=== PATIENT | female | born 1975 | race Hispanic/Latino ===

== ENCOUNTER 2016-10-12 08:30 | Inpatient (IN) | payer MEDICARE ==
[2016-10-12 09:23] LABS: Bilirubin,Urine NEG (Negative); Blood,Urine NEG (Negative); Ketones,Urine NEG (Negative); Leukocyte Esterase,Urine NEG (Negative); Mucus,Urine FEW /HPF; Nitrite,Urine NEG (Negative); Protein,Urine <15 mg/dL mg/dL (Negative); Urobilinogen,Urine < 2.0 mg/dL (<2.0)
[2016-10-12 10:02] LABS: Eosinophils % (Auto) 3.9 % (0.0-4.3); Hematocrit 33.9 % (30.3-42.9); Hemoglobin 10.9 gm/dl (10.1-14.3); Mean Corpuscular HGB Conc 32 % (30-34); Mean Corpuscular Volume 78 fl (79-97); Platelet Count 315 K/mm3 (140-440); Red Blood Count 4.32 M/mm3 (3.65-5.03); White Blood Count 4.6 K/mm3 (4.5-11.0)
[2016-10-12 10:05] LABS: Mean Corpuscular Hemoglobin 25 pg (28-32)
[2016-10-12 10:09] LABS: Anion Gap 20 mmol/L; BUN/Creatinine Ratio 8.88; Blood Urea Nitrogen 8 mg/dL (7-17); Calcium 8.4 mg/dL (8.4-10.2); Carbon Dioxide 24 mmol/L (22-30); Chloride 98.7 mmol/L (98-107); Glucose 130 mg/dL (65-100); Potassium 4.7 mmol/L (3.6-5.0); Sodium 138 mmol/L (137-145)
[2016-10-12] MEDS ORDERED: MORPHINE IV ONE ×2 (10:41→15:15)
[2016-10-12] MEDS ORDERED: NACL 0.9% 1000 ML 1,000 ML IV ONE (10:41)
[2016-10-12] MEDS ORDERED: ZOFRAN IV ONE (10:41)
[2016-10-12] MEDS ORDERED: TORADOL IV ONE (10:41)
--- NOTE | 2016-10-12 11:18 | XRay Report ---
CHEST TWO VIEWS: 10/12/16 08:30:00 CLINICAL: Chest pain. COMPARISON: None FINDINGS: Normal heart and pulmonary vasculature. The lungs are normally expanded and clear.Spondylosis of the thoracic spine. IMPRESSION: No acute cardiopulmonary process.
--- NOTE | 2016-10-12 13:39 | Nuclear Medicine Report ---
VENTILATION/PERFUSION LUNG SCAN: 10/12/16 13:08 CLINICAL: Chest pain. Mild d-dimer elevation. Tachycardia. TECHNIQUE: 15.0 millicuries of xenon-133 was administered by aerosol and 5.0mCi of technetium 99m MAA was administered intravenously. Comparison is made to a same day chest x-ray. FINDINGS: Inhalation of Xenon gas demonstrates a normal distribution of the activity throughout both lungs. The wash out phases show no focal retention of activity. After injection of Technetium 99m macroaggregated albumin, gamma camera imaging of the lungs in multiple projections demonstrates normal pulmonary contours with a homogeneous distribution of activity. No focal areas of perfusion deficiency are identified. IMPRESSION: Low probability of pulmonary embolus.
--- NOTE | 2016-10-12 14:09 | Emergency Department Report ---
ED Chest Pain HPI - General Chief Complaint: Chest Pain Stated Complaint: CHEST PAIN Time Seen by Provider: 10/12/16 10:35 Source: EMS Mode of arrival: Stretcher Limitations: No Limitations - History of Present Illness Initial Comments: 41 year old female with a past medical history of asthma, obesity, diabetes, seizures, previous appendectomy and cholecystectomy presents from [place] with complaints of left-sided chest pain since 1 AM. Patient was given medication, went to sleep, and woke up at 7 AM with continued left-sided chest pain. Patient's pain is constant, rated 9/10 in intensity worse with inspiration, palpation, and movement. Positive shortness of breath due to pain with inspiration. Denies nausea, vomiting, diaphoresis, cough, or calf tenderness. Patient denies previous history of stress test or cardiac cath.. Severity scale (0 -10): 5 - Related Data Home Medications Medication Instructions Recorded Confirmed Last Taken Albuterol Sulfate [Ventolin HFA] 8 mg IH Q6HR PRN 10/12/16 10/12/16 Unknown Gabapentin [Neurontin] 300 mg PO BID 10/12/16 10/12/16 10/12/16 Insulin Aspart [NovoLOG Flexpen] 100 unit INTRADERMA ACHS 10/12/16 10/12/1606/20 LORazepam [Ativan INJ] 1 mg IM Q4HR PRN 10/12/16 10/12/16 Unknown Lubiprostone [Amitiza] 8 mg PO BID 10/12/16 10/12/16 Unknown Metformin HCl [Glucophage] 500 mg PO BID 10/12/16 10/12/16 10/12/16 Sertraline [Zoloft] 50 mg PO DAILY 10/12/16 10/12/16 Unknown chlorproMAZINE [Thorazine INJ] 50 mg IM Q4HR PRN 10/12/16 10/12/16 Unknown guaiFENesin [Robitussin] 100 mg PO Q8HR 10/12/16 10/12/16 Unknown levETIRAcetam [Keppra TAB] 1,000 mg PO BID 10/12/16 10/12/16 Unknown levETIRAcetam [Keppra TAB] 500 mg PO DAILY 10/12/16 10/12/16 10/11/16 risperiDONE [RisperDAL] 2 mg PO DAILY 10/12/16 10/12/16 10/12/16 Allergies Allergy/AdvReac Type Severity Reaction Status Date / Time divalproex sodium Allergy Rash Verified 10/12/16 09:09 [From Depakote] carbamazepine [From Tegretol] AdvReac Rash Verified 10/12/16 09:09 JAVAD score - Javad Score Age > 65: (0) No (Constitutional: No fevers chills or weight loss) Aspirin use within the Past 7 Days: (0) No 3 or more CAD Risk Factors: (0) No 2 or more Angina events in past 24 hrs: (0) No Known CAD with more than 50% Stenosis: (0) No Elevated Cardiac Markers: (0) No ST Deviation Greater than 0.5mm: (0) No JAVAD Score: 0 ED Review of Systems ROS: Stated complaint: CHEST PAIN Other details as noted in HPI Comment: All other systems reviewed and negative Other: Constitutional: No fevers chills Eyes: No eye pain visual changes or discharge ENT: No ear pain or throat pain Neck: Denies pain Respiratory: Denies cough wheezing Cardiovascular: Denies palpitations, syncope GI: Denies abdominal pain, nausea, vomiting, diarrhea : Denies dysuria, urinary frequency, or urgency Musculoskeletal: Denies back pain, joint swelling Skin: Denies rash, lesions, erythema Neurologic: Denies headache, numbness, weakness Psychiatric: Denies suicidal ideation, hallucinations ED Past Medical Hx - Past Medical History Previous Medical History?: Yes Hx Diabetes: Yes Hx Seizures: Yes Hx Psychiatric Treatment: Yes Hx Asthma: Yes - Surgical History Past Surgical History?: Yes Hx Cholecystectomy: Yes Hx Appendectomy: Yes Additional Surgical History: Appendectomy - Social History Smoking Status: Never Smoker Substance Use Type: None - Medications Home Medications: Home Medications Medication Instructions Recorded Confirmed Last Taken Type Albuterol Sulfate [Ventolin HFA] 8 mg IH Q6HR PRN 10/12/16 10/12/16 Unknown History Gabapentin [Neurontin] 300 mg PO BID 10/12/16 10/12/16 10/12/16 History Insulin Aspart [NovoLOG Flexpen] 100 unit INTRADERMA ACHS 10/12/16 10/12/1606/20 History LORazepam [Ativan INJ] 1 mg IM Q4HR PRN 10/12/16 10/12/16 Unknown History Lubiprostone [Amitiza] 8 mg PO BID 10/12/16 10/12/16 Unknown History Metformin HCl [Glucophage] 500 mg PO BID 10/12/16 10/12/16 10/12/16 History Sertraline [Zoloft] 50 mg PO DAILY 10/12/16 10/12/16 Unknown History chlorproMAZINE [Thorazine INJ] 50 mg IM Q4HR PRN 10/12/16 10/12/16 Unknown History guaiFENesin [Robitussin] 100 mg PO Q8HR 10/12/16 10/12/16 Unknown History levETIRAcetam [Keppra TAB] 1,000 mg PO BID 10/12/16 10/12/16 Unknown History levETIRAcetam [Keppra TAB] 500 mg PO DAILY 10/12/16 10/12/16 10/11/16 History risperiDONE [RisperDAL] 2 mg PO DAILY 10/12/16 10/12/16 10/12/16 History ED Physical Exam - General Limitations: No Limitations - Other Other exam information: General: No limitations, patient is alert in no acute distress Head exam: Atraumatic, normocephalic Eyes exam: Normal appearance, pupils equal reactive to light, extraocular movements intact ENT: Moist mucous membrane, normal oropharynx Neck exam: Normal inspection, full range of motion Respiratory exam: Clear to auscultation bilateral, no wheezes, rales, crackles Cardiovascular: Tachycardic regular rhythm, reproducible left-sided chest wall tenderness Abdomen: Soft, nondistended, and nontender, with normal bowel sounds, no rebound, or guarding Extremity: Full range of motion normal inspection no deformity, no calf tenderness or edema Back: Normal Inspection, full range of motion, no tenderness Neurologic: Alert, oriented x3, cranial nerves intact, no motor or sensory deficit Psychiatric: normal affect, normal mood Skin: Warm, dry, intact ED Course Vital Signs 10/12/16 10/12/16 10/12/16 08:54 09:00 09:06 Temperature Pulse Rate 113 H Respiratory 12 16 Rate Blood Pressure 140/78 Blood Pressure [Left] O2 Sat by Pulse 81 L 99 100 Oximetry 10/12/16 10/12/16 10/12/16 09:10 09:16 09:30 Temperature Pulse Rate 121 H 114 H Respiratory 14 15 12 Rate Blood Pressure 109/58 116/65 Blood Pressure [Left] O2 Sat by Pulse 100 98 97 Oximetry 10/12/16 10/12/16 10/12/16 09:45 09:59 10:00 Temperature 98.0 F Pulse Rate Respiratory 16 Rate Blood Pressure 116/66 114/67 Blood Pressure [Left] O2 Sat by Pulse 97 100 98 Oximetry 10/12/16 10/12/16 10/12/16 10:20 10:38 10:45 Temperature Pulse Rate 128 H 122 H 125 H Respiratory 15 17 13 Rate Blood Pressure 114/67 119/69 116/75 Blood Pressure [Left] O2 Sat by Pulse 97 98 99 Oximetry 10/12/16 10/12/16 10/12/16 11:00 11:16 11:30 Temperature Pulse Rate 121 H 120 H Respiratory 12 12 12 Rate Blood Pressure 116/75 116/75 116/75 Blood Pressure [Left] O2 Sat by Pulse 99 98 95 Oximetry 10/12/16 10/12/16 10/12/16 11:46 12:00 12:16 Temperature Pulse Rate 114 H 116 H 112 H Respiratory 12 11 L 11 L Rate Blood Pressure 116/75 116/75 116/75 Blood Pressure [Left] O2 Sat by Pulse 98 97 97 Oximetry 10/12/16 10/12/16 10/12/16 12:30 12:46 13:00 Temperature Pulse Rate 108 H 122 H 104 H Respiratory 12 20 11 L Rate Blood Pressure 116/75 116/75 116/75 Blood Pressure [Left] O2 Sat by Pulse 99 98 97 Oximetry 10/12/16 10/12/16 10/12/16 13:47 13:57 14:00 Temperature 97.6 F Pulse Rate 102 H 111 H Respiratory 18 13 Rate Blood Pressure 104/62 112/77 Blood Pressure 104/58 [Left] O2 Sat by Pulse 89 100 96 Oximetry - Reevaluation(s) Reevaluation #1: 10/12/16 14:12 Patient heart rate is gradually improving with IV fluid and pain medication. Despite morphine and Toradol patient continues to complain of 10/10 left-sided chest pain. I referred to test pending at this time to rule out alternative source of tachycardia however, patient does have a psychiatric disorder and does receive Ativan as needed at [facility] for tachycardia can be related to anxiety. Initial O2 sat documented at 81% which is erroneous and does not follow the trend of her subsequent pulse oximetry measurements. Nurse states that this was incorrect measurement and has made a note in the chart 10/12/16 14:12 10/12/16 14:16 ED Medical Decision Making - Lab Data Result diagrams: 10/12/16 09:37 10/12/16 09:37 Lab Results 10/12/16 10/12/16 10/12/16 Range/Units 09:37 09:37 10:14 WBC 4.6 (4.5-11.0) K/mm3 RBC 4.32 (3.65-5.03) M/mm3 Hgb 10.9 (10.1-14.3) gm/dl Hct 33.9 (30.3-42.9) % MCV 78 L (79-97) fl MCH 25 L (28-32) pg MCHC 32 (30-34) % RDW 17.0 H (13.2-15.2) % Plt Count 315 (140-440) K/mm3 Lymph % (Auto) 32.0 (13.4-35.0) % [place] % (Auto) 10.9 H (0.0-7.3) % Eos % (Auto) 3.9 (0.0-4.3) % Baso % (Auto) 1.0 (0.0-1.8) % Lymph # 1.5 (1.2-5.4) K/mm3 [place] # 0.5 (0.0-0.8) K/mm3 Eos # 0.2 (0.0-0.4) K/mm3 Baso # 0.0 (0.0-0.1) K/mm3 Seg Neutrophils % 52.2 (40.0-70.0) % Seg Neutrophils # 2.4 (1.8-7.7) K/mm3 D-Dimer 331.18 H (0-234) ng/mlDDU Sodium 138 (137-145) mmol/L Potassium 4.7 (3.6-5.0) mmol/L Chloride 98.7 (98-107) mmol/L Carbon Dioxide 24 (22-30) mmol/L Anion Gap 20 mmol/L BUN 8 (7-17) mg/dL Creatinine 0.9 (0.7-1.2) mg/dL Estimated GFR > 60 ml/min BUN/Creatinine Ratio 8.88 % Glucose 130 H (65-100) mg/dL Calcium 8.4 (8.4-10.2) mg/dL Troponin T < 0.010 (0.00-0.029) ng/mL TSH (0.270-4.200) mlU/mL Urine Color (Yellow) Urine Turbidity (Clear) Urine pH (5.0-7.0) Ur Specific [place] (1.003-1.030) Urine Protein (Negative) mg/dL Urine Glucose (UA) (Negative) mg/dL Urine Ketones (Negative) mg/dL Urine Blood (Negative) Urine Nitrite (Negative) Urine Bilirubin (Negative) Urine Urobilinogen (<2.0) mg/dL Ur Leukocyte Esterase (Negative) Urine WBC (Auto) (0.0-6.0) /HPF Urine RBC (Auto) (0.0-6.0) /HPF U Epithel Cells (Auto) (0-13.0) /HPF Urine Mucus /HPF Urine HCG, Qual (Negative) 10/12/16 10/12/16 10/12/16 Range/Units 12:08 13:03 Unknown WBC (4.5-11.0) K/mm3 RBC (3.65-5.03) M/mm3 Hgb (10.1-14.3) gm/dl Hct (30.3-42.9) % MCV (79-97) fl MCH (28-32) pg MCHC (30-34) % RDW (13.2-15.2) % Plt Count (140-440) K/mm3 Lymph % (Auto) (13.4-35.0) % [place] % (Auto) (0.0-7.3) % Eos % (Auto) (0.0-4.3) % Baso % (Auto) (0.0-1.8) % Lymph # (1.2-5.4) K/mm3 [place] # (0.0-0.8) K/mm3 Eos # (0.0-0.4) K/mm3 Baso # (0.0-0.1) K/mm3 Seg Neutrophils % (40.0-70.0) % Seg Neutrophils # (1.8-7.7) K/mm3 D-Dimer (0-234) ng/mlDDU Sodium (137-145) mmol/L Potassium (3.6-5.0) mmol/L Chloride (98-107) mmol/L Carbon Dioxide (22-30) mmol/L Anion Gap mmol/L BUN (7-17) mg/dL Creatinine (0.7-1.2) mg/dL Estimated GFR ml/min BUN/Creatinine Ratio % Glucose (65-100) mg/dL Calcium (8.4-10.2) mg/dL Troponin T < 0.010 (0.00-0.029) ng/mL TSH 6.670 H (0.270-4.200) mlU/mL Urine Color Yellow (Yellow) Urine Turbidity Clear (Clear) Urine pH 6.0 (5.0-7.0) Ur Specific [place] 1.011 (1.003-1.030) Urine Protein <15 mg/dl (Negative) mg/dL Urine Glucose (UA) Neg (Negative) mg/dL Urine Ketones Neg (Negative) mg/dL Urine Blood Neg (Negative) Urine Nitrite Neg (Negative) Urine Bilirubin Neg (Negative) Urine Urobilinogen < 2.0 (<2.0) mg/dL Ur Leukocyte Esterase Neg (Negative) Urine WBC (Auto) 1.0 (0.0-6.0) /HPF Urine RBC (Auto) 2.0 (0.0-6.0) /HPF U Epithel Cells (Auto) 3.0 (0-13.0) /HPF Urine Mucus Few /HPF Urine HCG, Qual Negative (Negative) - EKG Data -: EKG Interpreted by Me (sinus tach [address] t abnl) - EKG Data When compared to previous EKG there are: previous EKG unavailable - Radiology Data Radiology results: report reviewed cxr: No acute findings VQ scan: Low probability of PE - Medical Decision Making I believe the patient's chest pain is reproducible likely chest wall related. However, patient does have some radiation to arm and left face. Given cardiac risk factors i.e. diabetes and obesity patient will be admitted to the hospital for stress testing since no reported history of stress testing in the past. No previous cardiac workup or hospital visit in [facility]. - Differential Diagnosis PE, atypical chest pain, pleurisy, [place], costochondritis, unstable ang Critical Care Time: No Critical care attestation.: If time is entered above; I have spent that time in minutes in the direct care of this critically ill patient, excluding procedure time. ED Disposition Clinical Impression: Diabetes Chest pain Qualifiers: Chest pain type: unspecified Qualified Code(s): R07.9 - Chest pain, unspecified Disposition: OP ADMITTED IP TO THIS HOSP Is pt being admited?: Yes Does the pt Need Aspirin: Yes Condition: Stable Time of Disposition: 14:06 (Dr Giovanni Adair/hosp)
[2016-10-12] MEDS ORDERED: ASPIRIN PO ONE (14:17)
[2016-10-12] MEDS ORDERED: MILK OF MAGNESIA PO PRN (15:34)
[2016-10-12] MEDS ORDERED: TYLENOL PO PRN (15:34)
[2016-10-12] MEDS ORDERED: ZOFRAN IV PRN (15:34)
[2016-10-12] MEDS ORDERED: D50W (25GM) IV PRN (15:34)
[2016-10-12] MEDS ORDERED: DULCOLAX PR PRN (15:34)
--- NOTE | 2016-10-12 15:49 | History and Physical Report ---
History of Present Illness Date of examination: 10/12/16 Chief complaint: Recurrent chest pain for 3 weeks History of present illness: 41-year-old white female with history of bipolar disorder was transferred from [facility] as the patient was complaining of chest pain. Patient is mildly psychotic. History is not very reliable. She says she has been having chest pain for 2,3 or 4 weeks. She says the pain pain has been constant all this time. However she woke up around 1 AM today with the severe chest pain in the midsternal area and she says it was quite severe and the pain was extending to the left side of her face. Again patient says that the pain has been constant. She also feels somewhat short of breath but denies any sweating palpitations or dizziness or loss of consciousness. She says she needs morphine for her pain Past History Past Medical History: diabetes, seizures, other (bipolar disorder) Past Surgical History: cholecystectomy, hernia repair Social history: no significant social history Family history: CAD, diabetes Medications and Allergies Allergies Allergy/AdvReac Type Severity Reaction Status Date / Time divalproex sodium Allergy Rash Verified 10/12/16 09:09 [From Depakote] carbamazepine [From Tegretol] AdvReac Rash Verified 10/12/16 09:09 Home Medications Medication Instructions Recorded Confirmed Last Taken Type Albuterol Sulfate [Ventolin HFA] 8 mg IH Q6HR PRN 10/12/16 10/12/16 Unknown History Gabapentin [Neurontin] 300 mg PO BID 10/12/16 10/12/16 10/12/16 History Insulin Aspart [NovoLOG Flexpen] 100 unit INTRADERMA ACHS 10/12/16 10/12/1606/20 History LORazepam [Ativan INJ] 1 mg IM Q4HR PRN 10/12/16 10/12/16 Unknown History Lubiprostone [Amitiza] 8 mg PO BID 10/12/16 10/12/16 Unknown History Metformin HCl [Glucophage] 500 mg PO BID 10/12/16 10/12/16 10/12/16 History Sertraline [Zoloft] 50 mg PO DAILY 10/12/16 10/12/16 Unknown History chlorproMAZINE [Thorazine INJ] 50 mg IM Q4HR PRN 10/12/16 10/12/16 Unknown History guaiFENesin [Robitussin] 100 mg PO Q8HR 10/12/16 10/12/16 Unknown History levETIRAcetam [Keppra TAB] 1,000 mg PO BID 10/12/16 10/12/16 Unknown History levETIRAcetam [Keppra TAB] 500 mg PO DAILY 10/12/16 10/12/16 10/11/16 History risperiDONE [RisperDAL] 2 mg PO DAILY 10/12/16 10/12/16 10/12/16 History Active Meds: Active Medications Acetaminophen (Tylenol) 650 mg PO Q4H PRN PRN Reason: Pain MILD(1-3)/Fever >100.5/JOY Acetaminophen/Hydrocodone Bitart ([place] 5/325) 1 each PO Q6H PRN PRN Reason: Pain, Moderate (4-6) Bisacodyl (Dulcolax) 10 mg [place] QDAY PRN PRN Reason: Constipation unrelieved by [facility] Dextrose (D50w (25gm)) 50 ml IV PRN PRN PRN Reason: Hypoglycemia Famotidine (Pepcid) 20 mg PO BID [facility] Gabapentin (Neurontin) 300 mg PO BID [facility] Heparin Sodium (Porcine) (Heparin) 5,000 unit SUB-Q Q8HR [facility] Insulin Aspart (Novolog) 0 units SUB-Q ACHS [facility] PRN Reason: Protocol Levetiracetam (Keppra) 500 mg PO DAILY [facility] Magnesium Hydroxide (Milk Of Magnesia) 30 ml PO Q4H PRN PRN Reason: Constipation Metformin HCl (Glucophage) 500 mg PO BID [facility] Miscellaneous Medication (Risperidone [Risperdal]) 2 mg PO DAILY [facility] Ondansetron HCl (Zofran) 4 mg IV Q8H PRN PRN Reason: N/V unrelieved by Reglan Sertraline HCl (Zoloft) 50 mg PO DAILY [facility] Review of Systems Constitutional: no weight loss, no weight gain, no fever, no chills, no fatigue , no weakness Ears, nose, mouth and throat: no ear pain, no ear discharge Cardiovascular: chest pain, shortness of breath, no palpitations, no syncope, no lightheadedness, no dyspnea on exertion, no high blood pressure Respiratory: no cough, no dyspnea on exertion, no wheezing (she denies any history of asthma) Gastrointestinal: no abdominal pain, no nausea, no vomiting, no diarrhea, no constipation, no melena Genitourinary Female: no dysuria, no urinary frequency, no urge incontinence Rectal: no pain Musculoskeletal: no neck pain, no low back pain Integumentary: no rash Neurological: seizures, no head injury, no syncope Psychiatric: depression (bipolar disorder), no anxiety Endocrine: no excessive thirst, no polyuria, no nocturia Exam - Constitutional Vitals: Temp Pulse Resp BP Pulse Ox 97.6 F 111 H 13 112/77 96 10/12/16 13:57 10/12/16 14:00 10/12/16 14:00 10/12/16 14:00 10/12/16 14:00 General appearance: Present: no acute distress, well-nourished - EENT Eyes: Present: PERRL, EOM intact ENT: hearing intact, clear oral mucosa, no thrush - Neck Neck: Present: supple, normal ROM. Absent: masses or JVD - Respiratory Respiratory effort: normal Respiratory: bilateral: CTA - Cardiovascular Rhythm: regular Heart Sounds: Present: S1 & S2 - Extremities Extremities: No edema - Abdominal General gastrointestinal: Present: soft, non-tender. Absent: hepatomegaly, splenomegaly - Integumentary Integumentary: Present: clear, warm - Musculoskeletal Musculoskeletal: strength equal bilaterally, other (she has mild to moderate chest wall tenderness over the sternal area) - Neurologic Neurologic: CNII-XII intact, no focal deficits, moves all extremities Results - Labs CBC & Chem 7: 10/12/16 09:37 10/12/16 09:37 Labs: Abnormal lab results 10/12/16 10/12/16 10/12/16 Range/Units 09:37 09:37 10:14 MCV 78 L (79-97) fl MCH 25 L (28-32) pg RDW 17.0 H (13.2-15.2) % [place] % (Auto) 10.9 H (0.0-7.3) % D-Dimer 331.18 H (0-234) ng/mlDDU Glucose 130 H (65-100) mg/dL TSH (0.270-4.200) mlU/mL 10/12/16 Range/Units 13:03 MCV (79-97) fl MCH (28-32) pg RDW (13.2-15.2) % [place] % (Auto) (0.0-7.3) % D-Dimer (0-234) ng/mlDDU Glucose (65-100) mg/dL TSH 6.670 H (0.270-4.200) mlU/mL Assessment and Plan - Patient Problems (1) Chest pain Current Visit: Yes Status: Acute Qualifiers: Chest pain type: unspecified Qualified Code(s): R07.9 - Chest pain, unspecified Plan to address problem: Atypical chest pain EKG shows a heart rate of 116 bpm, sinus tachycardia, low voltage QRS complex with nonspecific ST and T wave changes 2 sets of troponin were in the normal range VQ scan was low probability for PE Will subject the patient to stress thallium and if it's normal she may be transferred back to [facility] (2) Type 2 diabetes mellitus Current Visit: Yes Status: Chronic Qualifiers: Diabetes mellitus complication status: D Diabetes mellitus complication detail: D Diabetic retinopathy severity: D Proliferative retinopathy type: P Diabetes mellitus macular edema: D Diabetes mellitus termite renewal inspector insulin use : without termite renewal inspector use Laterality: L Chronic kidney disease stage: C Plan to address problem: Monitor blood sugars with sliding scale coverage Continue metformin (3) Seizure disorder Current Visit: Yes Status: Acute (4) Hypothyroidism Current Visit: Yes Status: Chronic Qualifiers: Hypothyroidism type: H Plan to address problem: This is a new finding as the patient is not on any medication We will start the patient on low-dose Synthroid (5) Bipolar disorder Current Visit: Yes Status: Chronic Qualifiers: Active/Remission status: A Current bipolar episode type: C Current episode severity: C Psychotic features: P Most recent bipolar episode type: M Plan to address problem: Continue her home medications
[2016-10-12] MEDS ORDERED: ASPIRIN ONE (17:30)
[2016-10-12] MEDS ORDERED: MORPHINE ONE (17:30)
[2016-10-12] MEDS: NOVOLOG SUB-Q SCH ×2 (18:10→22:52)
[2016-10-12] MEDS: PEPCID PO SCH (22:44)
[2016-10-12] MEDS: NEURONTIN PO SCH (22:44)
[2016-10-12] MEDS: HEPARIN SUB-Q SCH (22:44)
[2016-10-12] MEDS: GLUCOPHAGE PO SCH (22:44)
[2016-10-12] MEDS: NORCO 5/325 PO PRN (22:44)
[2016-10-13] MEDS ORDERED: SYNTHROID PO SCH (06:00)
[2016-10-13] MEDS: NORCO 5/325 PO PRN ×2 (06:23→13:46)
[2016-10-13] MEDS: SYNTHROID PO SCH (06:24)
[2016-10-13] MEDS: HEPARIN SUB-Q SCH ×3 (06:24→22:45)
[2016-10-13] MEDS: RisperDAL PO SCH (09:04)
[2016-10-13] MEDS: PEPCID PO SCH ×2 (09:04→22:45)
[2016-10-13] MEDS: GLUCOPHAGE PO SCH ×2 (09:04→22:45)
[2016-10-13] MEDS: KEPPRA PO SCH (09:04)
[2016-10-13] MEDS: NEURONTIN PO SCH ×2 (09:04→22:45)
[2016-10-13] MEDS: ZOLOFT PO SCH (09:04)
[2016-10-13] MEDS: NOVOLOG SUB-Q SCH ×4 (09:06→22:34)
[2016-10-13] MEDS ORDERED: NON-FORMULARY (Risperidone [Risperdal] 2 MG) PO SCH (10:00)
--- NOTE | 2016-10-13 11:45 | Progress Note ---
Assessment and Plan Assessment and plan: 41-year-old white female with history of bipolar disorder was transferred from [facility] as the patient was complaining of chest pain. Patient is mildly psychotic. History is not very reliable. She says she has been having chest pain for 2,3 or 4 weeks. She says the pain pain has been constant all this time. However she woke up around 1 AM on day of admission with the severe chest pain in the midsternal area and she says it was quite severe and the pain was extending to the left side of her face. Again patient says that the pain has been constant. She also feels somewhat short of breath but denies any sweating palpitations or dizziness or loss of consciousness. She says she needs morphine for her pain * Atypical chest pain midsternal, reproducible and constant * Type 2 diabetes mellitus * Seizure disorder * Hypothyroidism * Bipolar disorder- Recently self admitted herself to [place] * Elevated D.dimer Plan: * Continue supportive care, pain control, oxygen, asa, will add sucrafate. * Stress test planned for a.m. * Free T4 is normal. If patient was not previously on Synthroid and hold dose and have PCP reevaluate * Plan discharge patient wants to go back to [place] * VQ scan was low probability for PE * Continue diabetic control. * DVT and GI prophylaxis * Stress test is negative I'll recommend patient processes of outpatient workup including GI to rule out GERD and also age appropriate * Plan of care discussed in detail with the patient. History Interval history: Patient seen and examined this morning in no acute distress. Continues to complain of constant chest pain. Asking for morphine. Denies any nausea, vomiting, diarrhea No fever noted blood pressure controlled No adverse events reported to me by nursing staff Hospitalist Physical - Physical exam Narrative exam: VITAL SIGNS: Reviewed. GENERAL: The patient appeared well nourished and normally developed. Vital signs as documented. HEAD: No signs of head trauma. EYES: Pupils are equal. Extraocular motions intact. EARS: Hearing grossly intact. MOUTH: Oropharynx is normal. NECK: No adenopathy, no JVD. CHEST: Chest with clear breath sounds bilaterally. No wheezes, rales, or rhonchi. CARDIAC: Regular rate and rhythm. S1 and S2, without murmurs, gallops, or rubs. VASCULAR: No Edema. Peripheral pulses normal and equal in all extremities. ABDOMEN: Soft, without detectable tenderness. No sign of distention. No rebound or guarding, and no masses palpated. Bowel Sounds normal. MUSCULOSKELETAL: Good range of motion of all major joints. Reproducible pain to the mid sternum area. Extremities without clubbing, cyanosis or edema. NEUROLOGIC EXAM: Alert and oriented x 3. No focal sensory or strength deficits. Speech normal. Follows commands. PSYCHIATRIC: Mood normal. SKIN: No rash or lesions. - Constitutional Vitals: Temp Pulse Resp BP Pulse Ox 97.7 F 119 H 16 105/68 98 10/13/16 09:02 10/13/16 10:00 10/13/16 09:02 10/13/16 09:02 10/13/16 09:02 General appearance: Present: no acute distress, well-nourished Results - Labs CBC & Chem 7: 10/12/16 09:37 10/12/16 09:37 Labs: Laboratory Last Values WBC 4.6 K/mm3 (4.5-11.0) 10/12/16 09:37 RBC 4.32 M/mm3 (3.65-5.03) 10/12/16 09:37 Hgb 10.9 gm/dl (10.1-14.3) 10/12/16 09:37 Hct 33.9 % (30.3-42.9) 10/12/16 09:37 MCV 78 fl (79-97) L 10/12/16 09:37 MCH 25 pg (28-32) L 10/12/16 09:37 MCHC 32 % (30-34) 10/12/16 09:37 RDW 17.0 % (13.2-15.2) H 10/12/16 09:37 Plt Count 315 K/mm3 (140-440) 10/12/16 09:37 Lymph % (Auto) 32.0 % (13.4-35.0) 10/12/16 09:37 Pratt % (Auto) 10.9 % (0.0-7.3) H 10/12/16 09:37 Eos % (Auto) 3.9 % (0.0-4.3) 10/12/16 09:37 Baso % (Auto) 1.0 % (0.0-1.8) 10/12/16 09:37 Lymph # 1.5 K/mm3 (1.2-5.4) 10/12/16 09:37 Pratt # 0.5 K/mm3 (0.0-0.8) 10/12/16 09:37 Eos # 0.2 K/mm3 (0.0-0.4) 10/12/16 09:37 Baso # 0.0 K/mm3 (0.0-0.1) 10/12/16 09:37 Seg Neutrophils % 52.2 % (40.0-70.0) 10/12/16 09:37 Seg Neutrophils # 2.4 K/mm3 (1.8-7.7) 10/12/16 09:37 D-Dimer 331.18 ng/mlDDU (0-234) H 10/12/16 10:14 Sodium 138 mmol/L (137-145) 10/12/16 09:37 Potassium 4.7 mmol/L (3.6-5.0) 10/12/16 09:37 Chloride 98.7 mmol/L (98-107) 10/12/16 09:37 Carbon Dioxide 24 mmol/L (22-30) 10/12/16 09:37 Anion Gap 20 mmol/L 10/12/16 09:37 BUN 8 mg/dL (7-17) 10/12/16 09:37 Creatinine 0.9 mg/dL (0.7-1.2) 10/12/16 09:37 Estimated GFR > 60 ml/min 10/12/16 09:37 BUN/Creatinine Ratio 8.88 % 10/12/16 09:37 Glucose 130 mg/dL (65-100) H 10/12/16 09:37 POC Glucose 94 (70-105) 10/12/16 21:50 Calcium 8.4 mg/dL (8.4-10.2) 10/12/16 09:37 Troponin T < 0.010 ng/mL (0.00-0.029) 10/12/16 14:49 TSH 6.670 mlU/mL (0.270-4.200) H 10/12/16 13:03 Free T4 1.07 ng/dL (0.76-1.46) 10/12/16 13:03 Urine Color Yellow (Yellow) 10/12/16 Unknown Urine Turbidity Clear (Clear) 10/12/16 Unknown Urine pH 6.0 (5.0-7.0) 10/12/16 Unknown Ur Specific [place] 1.011 (1.003-1.030) 10/12/16 Unknown Urine Protein <15 mg/dl mg/dL (Negative) 10/12/16 Unknown Urine Glucose (UA) Neg mg/dL (Negative) 10/12/16 Unknown Urine Ketones Neg mg/dL (Negative) 10/12/16 Unknown Urine Blood Neg (Negative) 10/12/16 Unknown Urine Nitrite Neg (Negative) 10/12/16 Unknown Urine Bilirubin Neg (Negative) 10/12/16 Unknown Urine Urobilinogen < 2.0 mg/dL (<2.0) 10/12/16 Unknown Ur Leukocyte Esterase Neg (Negative) 10/12/16 Unknown Urine WBC (Auto) 1.0 /HPF (0.0-6.0) 10/12/16 Unknown Urine RBC (Auto) 2.0 /HPF (0.0-6.0) 10/12/16 Unknown U Epithel Cells (Auto) 3.0 /HPF (0-13.0) 10/12/16 Unknown Urine Mucus Few /HPF 10/12/16 Unknown Urine HCG, Qual Negative (Negative) 10/12/16 Unknown - Imaging and Cardiology EKG: image reviewed (normal sinus rhythm) Chest x-ray: image reviewed (chest x-ray are unremarkable)
[2016-10-13] MEDS ORDERED: PNEUMOVAX 23 IM ONE (12:00)
[2016-10-13] MEDS ORDERED: FLUARIX QUAD 2016-2017(36 MOS+) IM ONE (12:00)
[2016-10-13] MEDS: CARAFATE PO SCH ×3 (12:39→22:45)
[2016-10-13] MEDS: MORPHINE IV PRN ×2 (12:39→21:15)
[2016-10-14] MEDS: SYNTHROID PO SCH (06:33)
[2016-10-14] MEDS: HEPARIN SUB-Q SCH ×2 (06:33→14:49)
[2016-10-14] MEDS: NOVOLOG SUB-Q SCH ×2 (07:30→12:30)
--- NOTE | 2016-10-14 07:39 | Admit Criteria Form ---
Admission Criteria Documentation: CARDIOLOGY GRG Clinical Indications for Admission to Inpatient Care ( Place 'X' for any and all applicable criteria): Hospital admission is needed for appropriate care of the patient because of ANY ONE of the following (1): [ ] I. Hemodynamic instability as indicated by ALL of the following (1)(2)(3) (4)(5) [ ]a) Vital signs or other findings not as expected for chronic patient condition or baseline [ ]b) Instability indicated by ANY ONE of the following: [ ]i) Hypotension [ ]ii) Symptomatic Tachycardia unresponsive to treatment ( e.g., analgesia, fluids, sedation as indicated) [ ]iii) Inadequate perfusion indicated by ANY ONE of the following: [ ] 1) Lactic acidosis (> 2 mmol/L) [ ] 2) New abnormal capillary refill (> 3 seconds) [ ] 3) Reduced urine output [ ] 4) New altered mental status [ ]iv) Orthostatic vital sign changes unresponsive to treatment (e.g., fluids) [ ]v) IV inotropic or vasopressor medication required to maintain adequate blood pressure or perfusion [ ] II. Severe heart failure as indicated by ANY ONE of the following(17)(18) [ ]a) Respiratory distress [ ]b) Hypotension [ ]c) Anasarca (refractory to outpatient therapy) [ ]d) Cardiac arrhythmias of immediate concern [ ]e) Myocardial ischemia [ ] III. Cardiac arrhythmias or findings of immediate concern indicated by ANY ONE of the following (19)(20): [ ] a) Heart rhythms that are inherently dangerous or unstable indicated by ANY ONE of the following (21)(22)(23): [ ] i) Resuscitated ventricular fibrillation or cardiac arrest [ ] ii) Ventricular escape rhythm [ ] iii) Sustained ventricular tachycardia (30 seconds or more of ventricular rhythm at greater than 100 beats per minute) [ ] iv) Nonsustained ventricular tachycardia and ANY ONE of the following: [ ] 1) Suspected cardiac ischemia as cause or consequence of ventricular tachycardia [ ] 2) In setting of acute myocarditis [ ] b) Unstable cardiac conduction defects indicated by ANY ONE of the following(23)(24)(25) [ ] i) Type II second-degree atrioventricular block [ ]ii) Third-degree atrioventricular block [ ]iii) New-onset left bundle branch block with suspected myocardial ischemia [ ]c) Any heart rhythm and ANY ONE of the following (21)(22)(26)(27) (28) [ ] i) Continuous long-term ECG monitoring needed (e.g., initiation of drug requiring monitoring for more than 24 hours) [ ] ii) Patient has automatic implanted cardioverter defibrillator that is repeatedly firing, malfunctioning, or in need of immediate adjustment of settings beyond the scope of ambulatory or observation care [ ]d) Heart rhythms of concern due to ANY ONE of the following: [ ] i) Hypotension [ ] ii) Respiratory distress [ ] iii) Association with other significant symptoms (e.g., bradycardia with syncope or ongoing dizziness, supraventricular tachycardia with chest pain (14)(15)(17) [ ] IV. Monitoring for cardiac contusion beyond the scope of observation care needed [A](30)(31)(32) [ ] V. Surgical or device complication (e.g., valve replacement complication , pacemaker dysfunction) (35)(41)(44)(45)(46) [ ] . Inpatient palliative care needed. [B](49) Also use Inpatient Palliative Care Criteria [ ] VII. Nonbacterial thrombotic (marantic) endocarditis (36)(43)(47)(48) [X] VIII. Cardiology condition, symptom, or finding for which emergency and observation care has failed or are not considered appropriate. [ ] IX. Acute valvular disease requiring inpatient as indicated by ANY ONE of the following (41) [ ]a) Acute valvular regurgitation (42) [ ]b) Noninfectious valvulitis (43) [ ]c) Obstructive valve thrombosis [ ]d) Paravalvular leak [ ]e) Other significant valvular disorder remaining after emergency or observation level of care (as appropriate) [ ]X. Pericardial disease requiring inpatient treatment as indicated by ANY ONE of the following (33)(34)(35)(36)(37) [ ]a) Suspected tamponade (38)(39)(40) [ ]b) Hemopericardium [ ]c) Other significant pericardial disorder remaining after emergency or observation level of care (as appropriate) [ ] XI. Cardiac ischemia beyond scope of emergency and observation care. [ ] XII. Hypertension requiring inpatient treatment as indicated by ANY ONE of the following (6)(7)(8) [ ]a) SBP greater than 220 mm Hg or DBP greater than 120 mmHg despite treatment [ ]b) SBP greater than 140 mm Hg or DBP greater than 100 mm Hg with evidence of acute end organ damage as indicated by ANY ONE of the following [ ] i) Altered mental status [ ] ii) Acute renal failure as indicated by new onset of ANY ONE of the following (9)(10)(11)(12)(13) [ ]1) 3-fold rise in serum creatinine from baseline [ ]2) Serum creatinine greater than 4 mg/dL ( 354 micromoles/L) with acute rise greater than 0.5 mg/dL (44.2 micromoles/L) [ ]3) Reduction of more than 75% in estimated glomerular filtration rate from baseline [ ]4) Estimated glomerular filtration rate less than 35 mL/min/1.73m2 (0.59 mL/sec/1.73m2) in child up to 18 years of age [ ]5) Cessation of urine output indicated by ALL of the following [ ]A. Adequate volume status [ ]B. Inadequate urine output as indicated by ANY ONE of the following [ ]a. Urine output less than 0.3 mL/kg/hr for 24 hours [ ]b. Anuria (urine output less than 0.1 mL/kg/hr) for 12 hours [ ] iii) Aortic dissection [ ] iv) Myocardial Ischemia [ ] v) Left ventricular heart failure [ ]vi) Retinal Hemorrhage [ ]vii) Other significant finding [ ]c) Hypertension in child requiring inpatient treatment as indicated by ALL of the following(14)(15)(16) [ ] i) Outpatient treatment not effective, not available, or not appropriate [ ]ii) SBP or DBP greater than 95th percentile for age [ ]iii) Evidence of acute end organ damage as indicated by ANY ONE of the following [ ]1) Altered mental status [ ]2) Acute renal failure as indicated by new onset of ANY ONE of the following(9)(10)(11)(12)(13) [ ]A. 3-fold rise in serum creatinine from baseline [ ]B. Serum creatinine greater than 4 mg/dL (354 micromoles/L) with acute rise greater than 0.5 mg/dL (44.2 micromoles/L) [ ]C. Reduction of more than 75% in estimated glomerular filtration rate from baseline [ ]D. Estimated glomerular filtration rate less than 35 mL/min/1.73m2 (0.59 mL/sec/1.73m2) in child up to 18 years of age [ ]E. Cessation of urine output indicated by ALL of the following [ ]a. Adequate volume status [ ]b. Inadequate urine output as indicated by ANY ONE of the following [ ]i) Urine output less than 0.3 mL/kg/hr for 24 hours [ ]ii) Anuria ( urine output less than 0.1 mL/kg/hr) for 12 hours [ ]3) Severe headache [ ]4) Visual disturbance [ ]5) Retinal hemorrhage [ ]6) Other significant finding [ ]XIII. Complications of transplanted heart indicated by ANY ONE of the following(61): [ ]a) Acute graft rejection requiring inpatient management (eg, intravenous immunosuppression)(62)(63) [ ]b) Acute graft heart failure indicated by ANY ONE of the following(64): [ ]i) Hemodynamic instability [ ]ii) Cardiac arrhythmias of immediate concern [ ]iii) Pulmonary edema that is very severe (eg, mechanical ventilation needed, imminent or likely, need for 100% oxygen to keep oxygen saturation above 90%) [ ]iv) Pulmonary edema that is persistent as indicated by ALL of the following: [ ]1) New need for oxygen therapy to keep oxygen saturation above 90% (or increased FiO2 need from baseline) [ ]2) Has not improved sufficiently with emergency department or observation care IV diuretics or other heart failure treatments[E] [ ]v) Altered mental status that is severe or persistent [ ]vi) Increased creatinine (new on laboratory test) with reduction of more than 50% in estimated glomerular filtration rate from baseline [ ]vii) Progressively (ongoing) rising creatinine (known from past laboratory test) with reduction of more than 25% in estimated glomerular filtration rate from baseline [ ]viii) Acute renal failure [ ]ix) Acute peripheral ischemia (eg, examination shows pulseless, cool, mottled, or cyanotic extremity) [ ]x) Pulmonary artery catheter monitoring needed [ ]xi) Other sign or symptom of heart failure requiring inpatient treatment (ie, too severe or not responsive to outpatient and observation care treatment) [ ]c) Infection requiring inpatient management (eg, Hemodynamic instability, need for intravenous antimicrobial treatment)(66)(67)(68)(69)(70) [ ]d) Cardiac allograft vasculopathy requiring inpatient management ( eg evidence of cardiac ischemia)(71) [ ]e) Other complication of transplanted heart (eg, stroke, severe pulmonary hypertension, severe valvular dysfunction) requiring inpatient management(72) The original [facility] content created by [facility] has been revised. The portions of the content which have been revised are identified through the use of italic text or in bold, and [facility] has neither reviewed nor approved the modified material. All other unmodified content is copyright [facility]. Please see references footnoted in the original [facility] edition 2016 Admission Criteria Met: Yes
--- NOTE | 2016-10-14 08:38 | Discharge Summary ---
Providers - Providers Date of Admission: 10/12/16 15:35 Date of discharge: 10/14/16 Attending physician: TATIANA ESTEVES MD 10/12/16 18:31 Consult to Case Management [CONS] Routine Services Needed at Discharge: Lease Attendant Notified:: Case Management Phone number called:: [phone] Primary care physician: AMANDA MICHAEL Hospitalization Reason for admission: chest pain Condition: Stable Hospital course: 41-year-old white female with history of bipolar disorder was transferred from [facility] as the patient was complaining of chest pain. Patient is mildly psychotic. History is not very reliable. She says she has been having chest pain for 2,3 or 4 weeks. She says the pain pain has been constant all this time. However she woke up around 1 AM on day of admission with the severe chest pain in the midsternal area and she says it was quite severe and the pain was extending to the left side of her face. Again patient says that the pain has been constant. She also feels somewhat short of breath but denies any sweating palpitations or dizziness or loss of consciousness. She says she needs morphine for her pain. patient had a stress test, was negative, We recommend evaluation by GI outpatient to rule out GERD off and on she started on PPI. She denies any exertional component to this. Due to her elevated d-dimer I did recommend age appropriate cancer screening for the patient also. She verbalizes understanding. She also was very preoccupied and given pain medications IV. Did encourage her to return to [place] and complete her treatments. * Atypical chest pain midsternal, reproducible and constant- costochondritis * Type 2 diabetes mellitus * Seizure disorder * Hypothyroidism * Bipolar disorder- Recently self admitted herself to [place] * Elevated D.dimer Disposition: DISCHARGED TO HOME OR SELFCARE Time spent for discharge: 35 MINS Core Measure Documentation - Palliative Care Palliative Care/ Comfort Measures: Not Applicable - Core Measures Any of the following diagnoses?: none - VTE Discharge Requirements Deep Vein Thrombosis/Pulmonary Embolism Present on Admission: No Exam - Physical Exam Narrative exam: VITAL SIGNS: Reviewed. GENERAL: The patient appeared well nourished and normally developed. Vital signs as documented. HEAD: No signs of head trauma. EYES: Pupils are equal. Extraocular motions intact. EARS: Hearing grossly intact. MOUTH: Oropharynx is normal. NECK: No adenopathy, no JVD. CHEST: Chest with clear breath sounds bilaterally. No wheezes, rales, or rhonchi. CARDIAC: Regular rate and rhythm. S1 and S2, without murmurs, gallops, or rubs. VASCULAR: No Edema. Peripheral pulses normal and equal in all extremities. ABDOMEN: Soft, without detectable tenderness. No sign of distention. No rebound or guarding, and no masses palpated. Bowel Sounds normal. MUSCULOSKELETAL: Good range of motion of all major joints. Reproducible pain to the mid sternum area. Extremities without clubbing, cyanosis or edema. NEUROLOGIC EXAM: Alert and oriented x 3. No focal sensory or strength deficits. Speech normal. Follows commands. PSYCHIATRIC: Mood normal. SKIN: No rash or lesions. - Constitutional Vitals: Temp Pulse Resp BP Pulse Ox 99 F 105 H 20 122/69 95 10/14/16 05:00 10/14/16 05:00 10/14/16 05:00 10/14/16 05:00 10/14/16 05:00 Plan Activity: advance as tolerated, fall precautions Diet: low fat, diabetic Additional Instructions: follow at the [facility] Follow up with: AMANDA MICHAEL MD [Primary Care Provider] - 7 Days Prescriptions: Famotidine [Pepcid] 20 mg PO BID #60 tablet
[2016-10-14] MEDS ORDERED: LEXISCAN IV ONE ×2 (08:46→09:00)
[2016-10-14] MEDS: NORCO 5/325 PO PRN ×2 (09:45→14:50)
[2016-10-14] MEDS: CARAFATE PO SCH ×2 (10:36→10:37)
[2016-10-14] MEDS: NEURONTIN PO SCH (10:37)
[2016-10-14] MEDS: GLUCOPHAGE PO SCH (10:37)
[2016-10-14] MEDS: RisperDAL PO SCH (10:38)
[2016-10-14] MEDS: PEPCID PO SCH (10:38)
[2016-10-14] MEDS: KEPPRA PO SCH (10:38)
[2016-10-14] MEDS: ZOLOFT PO SCH (10:39)
[2016-10-14] MEDS: MORPHINE IV PRN (10:39)
[2016-10-14 12:18] VITALS: BP 133/75
--- NOTE | 2016-10-14 21:40 | Treadmill Report ---
THALLIUM STRESS TEST LEFT VENTRICLE: Left ventricular chamber size is within normal. Perfusion study demonstrates homogeneous uptake of the tracer in all segments, no significant defects identified. Gated analysis demonstrates normal left ventricular systolic function, ejection fraction 75%. CONCLUSION: Normal myocardial perfusion study. [facility]# [id number] CA/NTS
== END 2016-10-14 15:26 | disposition home or self-care (01) | DRG 206 ==
LOC: ED 08:30 → 4A 15:35 → OBSVTOIN 10-14 07:30
PROVIDERS: ADMIT Internal Medicine; ATTEND Internal Medicine
DX: M94.0 Chondrocostal junction syndrome [Tietze] (principal); J45.909 Unspecified asthma, uncomplicated; E11.9 Type 2 diabetes mellitus without complications; F31.9 Bipolar disorder, unspecified; G40.909 Epilepsy, unspecified, not intractable, without status epilepticus; E03.9 Hypothyroidism, unspecified; Z90.49 Acquired absence of other specified parts of digestive tract; Z79.4 Long term (current) use of insulin; Z82.49 Family history of ischemic heart disease and other diseases of the circulatory system; Z83.3 Family history of diabetes mellitus; Z88.8 Allergy status to other drugs, medicaments and biological substances
CPT/HCPCS: 36415; 71020; 78452; 78582; 80048; 81001; 81025; 82962; 84439; 84443; 84484; 85025; 85379; 87086; 90686; 90732; 93005; 93010; 93017; 96361; 96374; 96375; 96376; A9502; A9540; A9558; G0378; J1644; J1815; J1885; J2270; J2405; J2785; J7030